=== PATIENT | male | born 1975 | race Caucasian/White ===

== ENCOUNTER 2017-04-27 00:43 | Emergency (ER) | payer OTHER ==
[2017-04-27 01:22] VITALS: TEMP 98.7; BMI 38.3
--- NOTE | 2017-04-27 01:55 | PDOC ---
History of Present Illness - General Chief Complaint: Blood Pressure Problem Stated Complaint: HIGH BP/CHILLS/STOMACH PAIN Time Seen by Provider: 04/27/17 01:35 History Source: Patient - History of Present Illness Initial Comments: 04/27/17 01:51 41 year old male noted to have b/p 168/110 at home. patient reports feeling nervous and dizzy at the time. patient reports feeling fast heart beat. patient reports taking extra dose of his lisinopril prior to arrival. patient is currently asymptomatic. Patient denies headache, nausea, vomiting, abdominal pain, chest pain. Past History - Past Medical History Home Medications: Ambulatory Orders Unobtainable [Unobtainable] 04/27/17 GI Disorders: Yes (gerd) HTN: Yes Hypercholesterolemia: Yes - Psycho/Social/Smoking Cessation Hx Suicidal Ideation: No Smoking History: Never smoked Have you smoked in the past 12 months: No Information on smoking cessation initiated: No Hx Alcohol Use: No Drug/Substance Use Hx: No Review of Systems - Review of Systems Able to Perform ROS?: Yes Is the patient limited [place]er proficient: No Constitutional: Yes: Symptoms Reported *Physical Exam - Vital Signs Last Vital Signs Temp Pulse Resp BP Pulse Ox 98.7 F 115 H 18 133/99 96 04/27/17 01:20 04/27/17 01:20 04/27/17 01:20 04/27/17 01:20 04/27/17 01:20 - Physical Exam General Appearance: Yes: Appropriately Dressed Respiratory/Chest: positive: Lungs Clear, Normal Breath Sounds. negative: Chest Tender Cardiovascular: positive: Regular Rhythm, Regular Rate Gastrointestinal/Abdominal: positive: Normal Bowel Sounds, Soft Extremity: positive: Normal Capillary Refill, Normal Inspection, Normal Range of Motion Integumentary: positive: Normal Color, Dry, Warm Neurologic: positive: Fully Oriented, Alert Heart Score/ECG Review - History History: Slightly suspicious - Electrocardiogram EKG: Normal - Age Age: </= 45 - Risk Factors Risk Factors Heart Score: Yes Hx Obesity - Troponin Troponin: </= normal limit Medical Decision Making - Medical Decision Making A: hypertension P: stable for outpatient management of high blood pressure. patient reports that he will follow up with his pmd *DC/Admit/Observation/Transfer Diagnosis at time of Disposition: Hypertension Qualifiers: Hypertension type: unspecified Qualified Code(s): I10 - Essential (primary) hypertension - Discharge Dispostion Disposition: HOME - Patient Instructions Printed Discharge Instructions: DI for High Blood Pressure Additional Instructions: please follow up with your doctor to adjust your blood pressure medication. eat a heart healthy diet
[2017-04-27 02:36] VITALS: BP 136/91; PULSE 96
--- NOTE | 2017-04-27 12:56 | EKG ---
Test Reason : Blood Pressure : / mmHG Vent. Rate : 103 BPM Atrial Rate : 104 BPM P-R Int : 146 ms QRS Dur : 088 ms QT Int : 330 ms P-R-T Axes : 031 022 -02 degrees QTc Int : 432 ms SINUS TACHYCARDIA NONSPECIFIC T WAVE ABNORMALITY ABNORMAL ECG NO PREVIOUS ECGS AVAILABLE Confirmed by AMBER LEWIS, CONNIE ([id number]) on 04/27/2017 12:55:23 PM Referred By: Confirmed By:CONNIE CLARK MD
== END 2017-04-27 02:40 | disposition home or self-care (01) ==
LOC: JER 00:43
DX: I10 Essential (primary) hypertension (principal); K21.9 Gastro-esophageal reflux disease without esophagitis; E78.00 Pure hypercholesterolemia, unspecified
CPT/HCPCS: 93005; 93010; 99281-25

== ENCOUNTER 2018-02-16 09:44 | Emergency (ER) | payer OTHER ==
[2018-02-16] MEDS ORDERED: SODIUM CHLORIDE 1,000 ML IV STA (10:17)
[2018-02-16] MEDS: KETOROLAC TROMETHAMINE 30 MG/1 ML VIAL IVPUSH ONE ×2 (10:20→11:00)
[2018-02-16] MEDS ORDERED: KETOROLAC TROMETHAMINE 15 MG/ML VIAL ONE (10:44)
[2018-02-16] MEDS ORDERED: ONDANSETRON 4 MG/2 ML VIAL IVPB ONE (11:00)
[2018-02-16 11:03] VITALS: BP 149/108; PULSE 98; TEMP 98.4; BMI 40.1
--- NOTE | 2018-02-16 11:16 | PDOC ---
History of Present Illness - General Stated Complaint: ABD PAIN Time Seen by Provider: 02/16/18 09:57 - History of Present Illness Initial Comments: 02/16/18 11:13 "The patient is a 42 year old male, with a significant past medical history of hypertension, hyperlipidemia, GERD, and kidney stones, who presents to the emergency department with abdominal pain since approximately 04:00 this morning. The patient reports the pain is localized to the left lower quadrant and radiates into the left groin and to his left flank. He reports its sharp and rates it a 10/10. He reports associated nausea and 1 episode of emesis ( nonbloody/nonbilious), but denies any diarrhea or constipation. He denies any dysuria, hematuria, frequency, or urgency. He denies any recent fever, chills, headache, or dizziness. He denies any chest pain, shortness of breath, diaphoresis, or palpitations. He denies any recent travel or sick contacts. Pt states this feels similar to his prior kidney stone but is more severe. Allergies: NKDA Past Surgical History: None reported. Social History: Non smoker. No ETOH or recreational drug use. " Past History - Past Medical History Allergies/Adverse Reactions: Allergies Allergy/AdvReac Type Severity Reaction Status Date / Time No Known Allergies Allergy Verified 02/16/18 10:36 Home Medications: Ambulatory Orders Aspirin [ASA -] 81 mg PO DAILY 02/16/18 Enalapril/Hydrochlorothiazide [Vaseretic 10-25 mg Tablet] 1 each PO DAILY Omeprazole 20 mg PO DAILY 02/16/18 COPD: No GI Disorders: Yes (gerd) HTN: Yes Hypercholesterolemia: Yes - Surgical History Abdominal Surgery: No Appendectomy: No Cardiac Surgery: No Cholecystectomy: No Gastric Stapling: No GI Surgery: No Lung Surgery: No Neurologic Surgery: No - Immunization History TDAP Vaccination: Yes Immunization Up to Date: Yes - Suicide/Smoking/Psychosocial Hx Smoking History: Never smoked Have you smoked in the past 12 months: No Information on smoking cessation initiated: No Hx Alcohol Use: No Drug/Substance Use Hx: No Substance Use Type: None Review of Systems - Review of Systems Comments:: 02/16/18 11:14 "GENERAL/CONSTITUTIONAL: No fever or chills. No weakness. HEAD, EYES, EARS, NOSE AND THROAT: No change in vision. No ear pain or discharge. No sore throat. CARDIOVASCULAR: No chest pain or shortness of breath. RESPIRATORY: No cough, wheezing, or hemoptysis. GASTROINTESTINAL: +LLQ/ left groin pain, nausea, vomiting, No diarrhea, constipation, melena, or hematochezia.. GENITOURINARY: No dysuria, frequency, or change in urination. MUSCULOSKELETAL: No joint or muscle swelling or pain. No neck or back pain. SKIN: No rash NEUROLOGIC: No headache, vertigo, loss of consciousness, or change in strength/ sensation. ENDOCRINE: No increased thirst. No abnormal weight change. HEMATOLOGIC/LYMPHATIC: No anemia, easy bleeding, or history of blood clots. ALLERGIC/IMMUNOLOGIC: No hives or skin allergy. " *Physical Exam - Vital Signs Last Vital Signs Temp Pulse Resp BP Pulse Ox 98.4 F 98 H 22 149/108 98 02/16/18 09:50 02/16/18 09:50 02/16/18 09:50 02/16/18 09:50 02/16/18 09:50 - Physical Exam Comments: 02/16/18 11:14 "GENERAL: Awake, alert, and fully oriented, in no acute distress. HEAD: No signs of trauma EYES: PERRLA, EOMI, sclera anicteric, conjunctiva clear ENT: Auricles normal inspection, hearing grossly normal, nares patent, oropharynx clear without exudates. Moist mucosa NECK: Nontender, no stepoffs, Normal ROM, supple, no lymphadenopathy, JVD, or masses LUNGS: Breath sounds equal, clear to auscultation bilaterally. No wheezes, and no crackles HEART: Regular rate and rhythm, normal S1 and S2, no murmurs, rubs or gallops ABDOMEN: + LLQ tenderness, + L CVAT, normoactive bowel sounds. No guarding, no rebound. No masses : No scrotal masses or tenderness, normal testicular lay, normal cremaster bilaterally EXTREMITIES: Normal range of motion, no edema. No clubbing or cyanosis. No cords, erythema, or tenderness NEUROLOGICAL: Cranial nerves II through XII intact. 5/5 strength and sensation in all extremities, Normal speech, normal gait, normal cerebellar function SKIN: Warm, Dry, normal turgor, no rashes or lesions noted. " ED Treatment Course - LABORATORY CBC & Chemistry Diagram: 02/16/18 10:58 02/16/18 10:58 - Medications Given in the ED: ED Medications Discontinued Medications Generic Name Dose Route Start Last Admin Trade Name Carolyn PRN Reason Stop Dose Admin Ketorolac Tromethamine 15 mg 02/16/18 11:00 02/16/18 10:20 Toradol Injection - IVPUSH 02/16/18 11:01 15 mg ONCE ONE Administration Medical Decision Making - Medical Decision Making 02/16/18 11:15 42 M with LLQ pain radiating to L flank and L groin. Consistent with possible renal colic as pt has h/o kidney stones. Also consider colitis/diverticulitis. Pt with no evidence of inguinal hernia, no evidence of testicular torsion on exam. - Labs, UA, UCx - CT if indicated - IVF, pain control 02/16/18 13:28 Labs wnl UA with +blood, likely product support representative of stone No evidence of urinary tract infection Bedside sono shows normal aorta, no AAA Pt reassessed - states pain has migrated towards groin and almost completely resolved s/p toradol. Pt is well appearing, with normal vitals. Clinically stable for DC at this time. I discussed the physical exam findings, ancillary test results and final diagnoses with the patient. I answered all of the patient's questions. The patient was satisfied with the care received and felt comfortable with the discharge plan and treatment plan. The patient agrees to follow up with the primary care physician within 24-72 hours. *DC/Admit/Observation/Transfer Diagnosis at time of Disposition: Kidney stone - Discharge Dispostion Disposition: HOME - Referrals Referrals: Tacos Perez MS [Primary Care Provider] - Sami Burnett MD [Staff Physician] - - Patient Instructions Printed Discharge Instructions: DI for Kidney Stones Additional Instructions: You likely have a kidney stone. Drink plenty of fluids to stay hydrated. Take naproxen twice daily as needed for pain. If you have severe pain, take one percocet. If you have very severe pain, fevers, vomiting, or any other concerning symptoms , return to the ER immediately. Otherwise, follow up with a urologist within 1 week. Call the number provided to make an appointment. Print Language: OCCITAN - Post Discharge Activity - Attestations Physician Attestion: 02/16/18 13:32 IDr. Sang MD, attest that this document has been prepared under my direction and personally reviewed by me in its entirety. I further attest, that it accurately reflects all work, treatment, procedures and medical decision -making performed by me.
[2018-02-16 11:20] LABS: URINE APPEARANCE SLCLOUDY; URINE BILIRUBIN NEGATIVE (<2.0 mg/dL); URINE COLOR LTYELLOW; URINE GLUCOSE (UA) NEGATIVE (NEGATIVE); URINE KETONE NEGATIVE (NEGATIVE); URINE LEUK ESTERASE NEGATIVE (NEGATIVE); URINE NITRITE NEGATIVE (NEGATIVE); URINE PROTEIN NEGATIVE (NEGATIVE); URINE UROBILINOGEN NEGATIVE mg/dL (0.2-1.0)
[2018-02-16 11:21] LABS: BASO % 0.5 % (0-2.0); EOS % 0.5 % (0-4.5); HEMATOCRIT 43.7 % (35.4-49); HEMOGLOBIN 15.1 GM/dL (11.7-16.9); LYMPH % 25.8 % (8-40); MCH 28.6 pg (25.7-33.7); MCHC 34.6 g/dl (32.0-35.9); MEAN CELL VOLUME 82.6 fl (80-96); MEAN PLT VOLUME 8.6 fl (7.5-11.1); MONO % 5.2 % (3.8-10.2); PLATELET COUNT 303 K/MM3 (134-434); RBC 5.29 M/mm3 (4.00-5.60); RDW 13.6 % (11.9-15.9); WHITE BLOOD COUNT 9.8 K/mm3 (4.0-10.0)
[2018-02-16 11:38] LABS: EPI CELLS RARE /HPF (FEW); URINE MUCUS RARE
[2018-02-16 11:50] LABS: ALBUMIN 3.6 g/dl (3.4-5.0); ANION GAP 9 (8-16); BLOOD UREA NITROGEN 14 mg/dL (7-18); CALCIUM 9.3 mg/dL (8.5-10.1); CHLORIDE 103 mmol/L (98-107); CO2 28 mmol/L (21-32); CREATININE 0.9 mg/dL (0.7-1.3); GLUCOSE,RANDOM 111 mg/dL (74-106); POTASSIUM 4.1 mmol/L (3.5-5.1); SGOT/AST 12 U/L (15-37); SGPT/ALT 18 U/L (12-78); SODIUM 140 mmol/L (136-145); TOT PROT 7.5 g/dl (6.4-8.2)
[2018-02-16 11:51] LABS: LIPASE 266 U/L (73-393)
[2018-02-16 12:00] LABS: ALK PHOS 50 U/L (45-117); BILIRUBIN,TOTAL 0.4 mg/dL (0.2-1.0)
== END 2018-02-16 14:51 | disposition home or self-care (01) ==
LOC: JER 09:44 → SUPCPDRO 09:44 → JER 14:51
PROC: 3E0337Z Introduction of Electrolytic and Water Balance Substance into Peripheral Vein, Percutaneous Approach (ICD-10-PCS; principal; 2018-02-16)
PROC: 3E033GC Introduction of Other Therapeutic Substance into Peripheral Vein, Percutaneous Approach (ICD-10-PCS; 2018-02-16)
PROC: 3E0333Z Introduction of Anti-inflammatory into Peripheral Vein, Percutaneous Approach (ICD-10-PCS; 2018-02-16)
DX: N20.0 Calculus of kidney (principal); Z87.442 Personal history of urinary calculi; I10 Essential (primary) hypertension; E78.5 Hyperlipidemia, unspecified; K21.9 Gastro-esophageal reflux disease without esophagitis; Z79.82 Long term (current) use of aspirin
CPT/HCPCS: 36415; 80053; 81003; 81015; 83690; 85025; 87086; 99283-25; J7030

== ENCOUNTER 2021-04-19 03:28 | Emergency (ER) | payer OTHER ==
[2021-04-19 03:48] VITALS: BMI 36.0
[2021-04-19] MEDS ORDERED: morphine CARPU-JECT 2 MG/1 ML DISP.SYRIN IVPUSH ONE (03:59)
[2021-04-19] MEDS ORDERED: SODIUM CHLORIDE 0.9% 500 ML INFUS.BAG IV ONE (03:59)
[2021-04-19] MEDS ORDERED: ONDANSETRON 4 MG/2 ML VIAL IVPUSH ONE (04:01)
[2021-04-19] MEDS ORDERED: ONDANSETRON 4 MG/2 ML VIAL ONE (04:04)
[2021-04-19] MEDS ORDERED: MORPHINE SULFATE 2 MG/ML VIAL ONE (04:04)
[2021-04-19 04:24] LABS: BASO % 0.9 % (0-2.0); EOS % 1.1 % (0-4.5); HEMATOCRIT 45.7 % (35.4-49); HEMOGLOBIN 15.5 GM/dL (11.7-16.9); LYMPH % 39.7 % (8-40); MCH 28.2 pg (25.7-33.7); MCHC 33.9 g/dl (32.0-35.9); MEAN CELL VOLUME 83.3 fl (80-96); MEAN PLT VOLUME 9.2 fl (7.5-11.1); NEUT % 52.3 % (42.8-82.8); PLATELET COUNT 307 10^3/uL (134-434); RBC 5.49 M/mm3 (4.00-5.60); RDW 14.1 % (11.9-15.9); WHITE BLOOD COUNT 11.9 K/mm3 (4.0-10.0)
[2021-04-19] MEDS ORDERED: METOCLOPRAMIDE HCL INJECTION 10 MG/2 ML VIAL ONE (04:26)
[2021-04-19] MEDS ORDERED: METOCLOPRAMIDE HCL INJECTION 10 MG/2 ML VIAL IVPB ONE (04:28)
[2021-04-19 04:45] LABS: CALCIUM 8.9 mg/dL (8.5-10.1)
[2021-04-19 04:46] LABS: ALBUMIN 3.4 g/dl (3.4-5.0); BLOOD UREA NITROGEN 16.6 mg/dL (7-18); MAGNESIUM 1.7 mg/dL (1.8-2.4)
[2021-04-19 04:49] LABS: CREATININE 1.1 mg/dL (0.55-1.3)
[2021-04-19 04:50] LABS: BILIRUBIN,TOTAL 0.4 mg/dL (0.2-1); TOT PROT 7.3 g/dl (6.4-8.2)
[2021-04-19] MEDS ORDERED: KETOROLAC TROMETHAMINE 15 MG/ML VIAL IVPUSH ONE (04:53)
[2021-04-19] MEDS ORDERED: KETOROLAC TROMETHAMINE 15 MG/ML VIAL ONE (04:53)
[2021-04-19 05:14] LABS: EPI CELLS 15 /uL (0-25.1); HYALINE CASTS 6 /uL (0-3.1); URINE APPEARANCE TURBID; URINE BACTERIA 1 /uL (0-1359); URINE BILIRUBIN 1+ (NEGATIVE); URINE COLOR DK YELLOW; URINE GLUCOSE (UA) NEGATIVE (NEGATIVE); URINE KETONE TRACE (NEGATIVE); URINE LEUK ESTERASE 1+ (NEGATIVE); URINE NITRITE NEGATIVE (NEGATIVE); URINE PROTEIN 2+ (NEGATIVE); URINE WBC 78 /uL (0-25.8)
[2021-04-19] MEDS ORDERED: KETOROLAC TROMETHAMINE 30 MG/1 ML VIAL IVPUSH ONE (05:28)
[2021-04-19 06:16] VITALS: BP 136/74; PULSE 78; TEMP 98.4
[2021-04-19 09:36] LABS: URINE RBC 154.8 /uL (0-23.9)
[2021-04-19 09:37] LABS: URINE CRYSTALS NON SEEN /hpf
== END 2021-04-19 06:16 | disposition home or self-care (01) ==
LOC: JER 03:28
PROC: 3E033NZ Introduction of Analgesics, Hypnotics, Sedatives into Peripheral Vein, Percutaneous Approach (ICD-10-PCS; principal; 2021-04-19)
PROC: 3E033GC Introduction of Other Therapeutic Substance into Peripheral Vein, Percutaneous Approach (ICD-10-PCS; 2021-04-19)
PROC: 3E033GC Introduction of Other Therapeutic Substance into Peripheral Vein, Percutaneous Approach (ICD-10-PCS; 2021-04-19)
PROC: 3E0333Z Introduction of Anti-inflammatory into Peripheral Vein, Percutaneous Approach (ICD-10-PCS; 2021-04-19)
PROC: 3E0333Z Introduction of Anti-inflammatory into Peripheral Vein, Percutaneous Approach (ICD-10-PCS; 2021-04-19)
DX: N20.0 Calculus of kidney (principal)
CPT/HCPCS: 36415; 74176-TC; 80053; 81003; 83690; 83735; 85025; 87086; 93005; 93010; 99284-25

== ENCOUNTER 2021-06-17 07:59 | Observation (INO) | payer OTHER ==
[2021-06-17] MEDS ORDERED: ASPIRIN 81 MG CHEWABLE TABLETS PO ONE (08:44)
[2021-06-17] MEDS ORDERED: NITROGLYCERIN 2% OINTMENT - 1GM PACKET TD ONE ×2 (08:44→09:15)
[2021-06-17] MEDS ORDERED: FAMOTIDINE 20 MG/50 ML IVPB 20 MG/50 ML MG IVPB ONE ×2 (08:44→09:16)
[2021-06-17] MEDS ORDERED: ASPIRIN 81 MG CHEWABLE TABLETS ONE (09:16)
[2021-06-17 10:54] LABS: HEMATOCRIT 45.4 % (35.4-49); HEMOGLOBIN 15.4 GM/dL (11.7-16.9); MCH 28.4 pg (25.7-33.7); MEAN CELL VOLUME 83.5 fl (80-96); MEAN PLT VOLUME 9.1 fl (7.5-11.1); PLATELET COUNT 314 10^3/uL (134-434); RBC 5.43 M/mm3 (4.00-5.60); RDW 13.8 % (11.9-15.9); WHITE BLOOD COUNT 11.1 K/mm3 (4.0-10.0)
[2021-06-17 11:22] LABS: CHLORIDE 107 mmol/L (98-107); SODIUM 139 mmol/L (136-145)
[2021-06-17 11:25] LABS: ALBUMIN 3.4 g/dl (3.4-5.0); ANION GAP 6 MMOL/L (8-16); BLOOD UREA NITROGEN 14.7 mg/dL (7-18); CALCIUM 9.3 mg/dL (8.5-10.1); CO2 26 mmol/L (21-32); GLUCOSE,RANDOM 113 mg/dL (74-106); LIPASE 245 U/L (73-393)
[2021-06-17 11:29] LABS: CREATININE 0.9 mg/dL (0.55-1.3); SGOT/AST 10 U/L (15-37); SGPT/ALT 23 U/L (13-61); TOT PROT 7.3 g/dl (6.4-8.2)
[2021-06-17 11:31] LABS: ALK PHOS 41 U/L (45-117)
[2021-06-17 14:16] LABS: ANISOCYTOSIS 0; MACROCYTOSIS 0; PLATELET ESTIMATE NORMAL
[2021-06-17] MEDS ORDERED: MAG HYDROX/AL HYDROX/SIMETH -MYLANTA- ORAL SUSPENSION PO ONE (15:38)
[2021-06-17] MEDS ORDERED: ACETAMINOPHEN 325 MG TABLET (FP) PO ONE (15:39)
[2021-06-17] MEDS ORDERED: MAG HYDROX/AL HYDROX/SIMETH 30 ML UNIT-DOSE CUP ONE (16:01)
[2021-06-17] MEDS ORDERED: ACETAMINOPHEN 325 MG TABLET (FP) ONE ×2 (16:01→19:48)
[2021-06-17] MEDS ORDERED: ACETAMINOPHEN 325 MG TABLET (FP) PO PRN (18:51)
[2021-06-17] MEDS ORDERED: ACETAMINOPHEN 500 MG TABLET (FP) PO ONE (18:51)
[2021-06-17 23:16] LABS: PH,URINE 5.5 (5.0-8.0); URINE APPEARANCE CLEAR; URINE BILIRUBIN NEGATIVE (NEGATIVE); URINE COLOR YELLOW; URINE GLUCOSE (UA) NEGATIVE (NEGATIVE); URINE KETONE NEGATIVE (NEGATIVE); URINE LEUK ESTERASE NEGATIVE (NEGATIVE); URINE NITRITE NEGATIVE (NEGATIVE); URINE PROTEIN NEGATIVE (NEGATIVE); URINE UROBILINOGEN 0.2 mg/dL (0.2-1.0)
[2021-06-18] MEDS ORDERED: MAG HYDROX/AL HYDROX/SIMETH 30 ML UNIT-DOSE CUP PO ONE (00:35)
[2021-06-18 00:36] VITALS: BMI 39.9
[2021-06-18] MEDS: MELATONIN 5 MG TABLETS PO PRN (00:44)
[2021-06-18 08:07] LABS: HEMATOCRIT 41.3 % (35.4-49); HEMOGLOBIN 14.3 GM/dL (11.7-16.9); MCHC 34.6 g/dl (32.0-35.9); MEAN CELL VOLUME 83.8 fl (80-96); MEAN PLT VOLUME 8.8 fl (7.5-11.1); PLATELET COUNT 264 10^3/uL (134-434); RBC 4.93 M/mm3 (4.00-5.60); RDW 13.9 % (11.9-15.9); WHITE BLOOD COUNT 12.3 K/mm3 (4.0-10.0)
[2021-06-18 08:37] LABS: BLOOD UREA NITROGEN 15.4 mg/dL (7-18)
[2021-06-18 08:39] LABS: PHOSPHOROUS 3.1 mg/dL (2.5-4.9)
[2021-06-18 08:42] LABS: CREATININE 0.9 mg/dL (0.55-1.3)
[2021-06-18 08:43] LABS: MAGNESIUM 1.8 mg/dL (1.8-2.4)
[2021-06-18] MEDS ORDERED: PATIENT'S OWN MEDICATION (NON-FORMULARY) (Lisinopril/Hydrochlorothiazide [Lisinopril-Hctz PO SCH (10:00)
[2021-06-18] MEDS: HYDROCHLOROTHIAZIDE 12.5 MG CAPSULE (FP) PO SCH (10:41)
[2021-06-18] MEDS: FENOFIBRIC ACID 135 MG CAP PO SCH (10:41)
[2021-06-18] MEDS: ASPIRIN 81 MG CHEWABLE TABLETS PO SCH (10:41)
[2021-06-18] MEDS: PANTOPRAZOLE 40 MG TABLET PO SCH (10:41)
[2021-06-18] MEDS: OMEGA-3 ACID ETHYL ESTERS (FATTY-ACIDS) 1 GM CAPSULE (FP) PO SCH (10:41)
[2021-06-18] MEDS: LISINOPRIL 10 MG TABLET PO SCH (10:42)
[2021-06-18] MEDS ORDERED: PT OWN MED DRAWER 7, Y5N ONE (16:07)
[2021-06-19] MEDS: MELATONIN 5 MG TABLETS PO PRN (00:20)
[2021-06-19 05:38] VITALS: TEMP 98.2
[2021-06-19 08:22] LABS: HEMATOCRIT 44.1 % (35.4-49); HEMOGLOBIN 15.6 GM/dL (11.7-16.9); MCH 29.3 pg (25.7-33.7); MCHC 35.4 g/dl (32.0-35.9); MEAN CELL VOLUME 82.7 fl (80-96); MEAN PLT VOLUME 9.2 fl (7.5-11.1); PLATELET COUNT 294 10^3/uL (134-434); RBC 5.33 M/mm3 (4.00-5.60); RDW 13.8 % (11.9-15.9); WHITE BLOOD COUNT 11.4 K/mm3 (4.0-10.0)
[2021-06-19 08:43] LABS: ALBUMIN 3.2 g/dl (3.4-5.0); BLOOD UREA NITROGEN 12.1 mg/dL (7-18); CALCIUM 9.1 mg/dL (8.5-10.1)
[2021-06-19 08:47] LABS: CREATININE 0.7 mg/dL (0.55-1.3)
[2021-06-19 08:49] LABS: TOT PROT 7.2 g/dl (6.4-8.2)
[2021-06-19] MEDS ORDERED: PT OWN MED DRAWER 7, Y5N ONE (09:38)
[2021-06-19] MEDS: ASPIRIN 81 MG CHEWABLE TABLETS PO SCH ×2 (10:15→12:20)
[2021-06-19] MEDS: OMEGA-3 ACID ETHYL ESTERS (FATTY-ACIDS) 1 GM CAPSULE (FP) PO SCH ×2 (10:17→12:20)
[2021-06-19] MEDS: LISINOPRIL 10 MG TABLET PO SCH ×2 (10:17→12:21)
[2021-06-19] MEDS: HYDROCHLOROTHIAZIDE 12.5 MG CAPSULE (FP) PO SCH ×2 (10:17→12:20)
[2021-06-19] MEDS: PANTOPRAZOLE 40 MG TABLET PO SCH ×2 (10:18→12:20)
[2021-06-19] MEDS: FENOFIBRIC ACID 135 MG CAP PO SCH ×2 (10:18→12:20)
[2021-06-19 12:45] VITALS: BP 125/57; PULSE 81
== END 2021-06-19 17:37 | disposition home or self-care (01) ==
LOC: JER 07:59 → JERBED 13:26 → J4W 23:47
PROVIDERS: ADMIT Internal Medicine; ATTEND Internal Medicine
PROC: 3E033GC Introduction of Other Therapeutic Substance into Peripheral Vein, Percutaneous Approach (ICD-10-PCS; principal; 2021-06-17)
DX: R07.9 Chest pain, unspecified (principal); R10.13 Epigastric pain; I10 Essential (primary) hypertension; R73.03 Prediabetes; K21.9 Gastro-esophageal reflux disease without esophagitis; K29.70 Gastritis, unspecified, without bleeding; E66.01 Morbid (severe) obesity due to excess calories; Z68.41 Body mass index [BMI] 40.0-44.9, adult; D72.829 Elevated white blood cell count, unspecified
CPT/HCPCS: 36415; 71045-TC-FY; 76705-TC; 80048; 80053; 81003; 82550; 83690; 83735; 84100; 84484; 85025; 85027; 93005; 93010; 96365; 99285-25; C9803; G0378; U0003; U0005

== ENCOUNTER 2022-10-13 07:21 | Emergency (ER) | payer OTHER ==
[2022-10-13 07:35] VITALS: TEMP 99.2; BMI 38.9
[2022-10-13] MEDS ORDERED: SODIUM CHLORIDE 1,000 ML IV STA (09:09)
[2022-10-13 11:25] LABS: BASO % 0.5 % (0-2.0); EOS % 0.7 % (0-4.5); HEMATOCRIT 49.9 % (35.4-49); HEMOGLOBIN 16.4 GM/dL (11.7-16.9); LYMPH % 28.9 % (8-40); MCH 27.2 pg (25.7-33.7); MCHC 32.8 g/dl (32.0-35.9); MEAN CELL VOLUME 82.8 fl (80-96); MEAN PLT VOLUME 9.5 fl (7.5-11.1); NEUT % 64.9 % (42.8-82.8); PLATELET COUNT 279 10^3/uL (134-434); RBC 6.02 M/mm3 (4.00-5.60); RDW 14.7 % (11.9-15.9)
[2022-10-13 11:28] LABS: EPI CELLS 1 /uL (0-25.1); HYALINE CASTS 0 /uL (0-3.1); PH,URINE 6.5 (5.0-8.0); URINE APPEARANCE CLEAR; URINE BACTERIA 12 /uL (0-1359); URINE BILIRUBIN NEGATIVE (NEGATIVE); URINE COLOR YELLOW; URINE GLUCOSE (UA) NEGATIVE (NEGATIVE); URINE KETONE NEGATIVE (NEGATIVE); URINE LEUK ESTERASE NEGATIVE (NEGATIVE); URINE NITRITE NEGATIVE (NEGATIVE); URINE PROTEIN NEGATIVE (NEGATIVE); URINE RBC 53 /uL (0-23.9); URINE UROBILINOGEN 0.2 mg/dL (0.2-1.0); URINE WBC 4 /uL (0-25.8)
[2022-10-13 11:48] LABS: CALCIUM 9.5 mg/dL (8.5-10.1)
[2022-10-13 11:49] LABS: ALBUMIN 3.2 g/dl (3.4-5.0); BLOOD UREA NITROGEN 14.8 mg/dL (7-18); MAGNESIUM 1.7 mg/dL (1.8-2.4)
[2022-10-13 11:52] LABS: CREATININE 0.8 mg/dL (0.55-1.3)
[2022-10-13 11:53] LABS: BILIRUBIN,TOTAL 0.8 mg/dL (0.2-1)
[2022-10-13] MEDS ORDERED: MAGNESIUM SULF 50% (8.12 MEQ/2 ML-1 GM VIAL) IVPB ONE (12:41)
[2022-10-13 14:52] VITALS: BP 130/89; PULSE 78; RESP 18
== END 2022-10-13 15:11 | disposition home or self-care (01) ==
LOC: JER 07:21
PROC: 3E033GC Introduction of Other Therapeutic Substance into Peripheral Vein, Percutaneous Approach (ICD-10-PCS; principal; 2022-10-13)
DX: R53.1 Weakness (principal); R00.2 Palpitations; E83.42 Hypomagnesemia
CPT/HCPCS: 36415; 80053; 81003; 82550; 83690; 83735; 84484; 85025; 93005; 93010; 99284-25

== ENCOUNTER 2022-12-16 10:21 | Emergency (ER) | payer OTHER ==
[2022-12-16 11:07] VITALS: RESP 18; BMI 40.8
[2022-12-16] MEDS ORDERED: MECLIZINE HCL 25 MG TABLET (FP) PO ONE (11:35)
[2022-12-16] MEDS ORDERED: FAMOTIDINE 20 MG/50 ML IVPB 20 MG/50 ML MG IVPB ONE ×2 (11:35→11:55)
[2022-12-16] MEDS ORDERED: METOCLOPRAMIDE HCL INJECTION 10 MG/2 ML VIAL IVPUSH ONE (11:35)
[2022-12-16] MEDS ORDERED: SODIUM CHLORIDE 0.9% 500 ML INFUS.BAG IV ONE (11:35)
[2022-12-16] MEDS ORDERED: ACETAMINOPHEN 1000 MG/100 ML BAG IVPB ONE (11:36)
[2022-12-16] MEDS ORDERED: METOCLOPRAMIDE HCL INJECTION 10 MG/2 ML VIAL ONE (11:54)
[2022-12-16] MEDS ORDERED: MECLIZINE HCL 25 MG TABLET (FP) ONE (11:54)
[2022-12-16 12:50] LABS: BASO % 0.3 % (0-2.0); EOS % 0.5 % (0-4.5); HEMATOCRIT 49.9 % (35.4-49); HEMOGLOBIN 16.5 GM/dL (11.7-16.9); LYMPH % 28.6 % (8-40); MCH 27.3 pg (25.7-33.7); MCHC 33.1 g/dl (32.0-35.9); MEAN CELL VOLUME 82.4 fl (80-96); MEAN PLT VOLUME 9.5 fl (7.5-11.1); MONO % 4.9 % (3.8-10.2); NEUT % 65.7 % (42.8-82.8); PLATELET COUNT 281 10^3/uL (134-434); RBC 6.05 M/mm3 (4.00-5.60); RDW 14.7 % (11.9-15.9); WHITE BLOOD COUNT 12.3 K/mm3 (4.0-10.0)
[2022-12-16 12:53] LABS: EPI CELLS 3 /uL (0-25.1); HYALINE CASTS 0 /uL (0-3.1); URINE APPEARANCE CLEAR; URINE BACTERIA 112 /uL (0-1359); URINE BILIRUBIN NEGATIVE (NEGATIVE); URINE COLOR YELLOW; URINE GLUCOSE (UA) NEGATIVE (NEGATIVE); URINE KETONE NEGATIVE (NEGATIVE); URINE LEUK ESTERASE NEGATIVE (NEGATIVE); URINE NITRITE NEGATIVE (NEGATIVE); URINE PROTEIN 1+ (NEGATIVE); URINE RBC 60 /uL (0-23.9); URINE WBC 11 /uL (0-25.8)
[2022-12-16 13:17] LABS: CALCIUM 9.7 mg/dL (8.5-10.1)
[2022-12-16 13:18] LABS: ALBUMIN 3.3 g/dl (3.4-5.0); BLOOD UREA NITROGEN 12.7 mg/dL (7-18)
[2022-12-16 13:20] LABS: CREATININE 0.7 mg/dL (0.55-1.3)
[2022-12-16 13:22] LABS: BILIRUBIN,TOTAL 0.7 mg/dL (0.2-1); TOT PROT 7.2 g/dl (6.4-8.2)
[2022-12-16] MEDS ORDERED: LORazepam 2 MG/ML SDV VIAL IVPUSH ONE (16:13)
[2022-12-16 17:01] VITALS: BP 141/80; PULSE 89; TEMP 97.9
== END 2022-12-16 18:30 | disposition home or self-care (01) ==
LOC: JER 10:21
PROC: 3E033GC Introduction of Other Therapeutic Substance into Peripheral Vein, Percutaneous Approach (ICD-10-PCS; principal; 2022-12-16)
DX: G43.909 Migraine, unspecified, not intractable, without status migrainosus (principal); H60.92 Unspecified otitis externa, left ear
CPT/HCPCS: 0241U-QW; 36415; 80053; 81003; 82962; 85025; 87086; 93005; 93010; 99284-25

== ENCOUNTER 2024-06-18 09:20 | Emergency (ER) | payer OTHER ==
[2024-06-18 10:10] VITALS: RESP 20; TEMP 98.7; BMI 44.6
[2024-06-18 10:15] VITALS: BP 118/63; PULSE 91
== END 2024-06-18 11:18 | disposition home or self-care (01) ==
LOC: JER 09:20
DX: K13.0 Diseases of lips (principal); R20.0 Anesthesia of skin
CPT/HCPCS: 99283-25

== ENCOUNTER 2025-05-06 14:00 | Emergency (ER) | payer OTHER ==
[2025-05-06 14:24] VITALS: BMI 44.8
[2025-05-06] MEDS: SODIUM CHLORIDE 500 ML IV STA (15:48)
[2025-05-06] MEDS: ACETAMINOPHEN 1000 MG/100 ML BAG IVPB ONE (15:49)
[2025-05-06 16:07] LABS: ABSOLUTE IMMATURE GRANULOCYTES 0.04 x10^3/uL (0.0-0.031); BASOPHILS # 0.07 x10^3/uL (0.01-0.08); EOSINOPHIL % 0.5 % (0.8-7.0); EOSINOPHILS # 0.05 x10^3/uL (0.04-0.54); MCHC 32.4 g/dl (32.3-36.5); MEAN CELL VOLUME 83.2 fl (79.0-92.2); MEAN PLT VOLUME 10.7 fl (9.4-12.4); MONOCYTE # 0.79 x10^3/uL (0.30-0.82); MONOCYTE % 7.9 % (5.3-12.2); RDW 13.3 % (12.2-16.1)
[2025-05-06 16:23] LABS: EPI CELLS 6 /uL (0-25.1); HYALINE CASTS 2 /uL (0-3.1); URINE APPEARANCE CLEAR; URINE BACTERIA 4 /uL (0-1359); URINE BILIRUBIN 1+ (NEGATIVE); URINE COLOR DK YELLOW; URINE GLUCOSE (UA) NEGATIVE (NEGATIVE); URINE KETONE TRACE (NEGATIVE); URINE LEUK ESTERASE NEGATIVE (NEGATIVE); URINE NITRITE NEGATIVE (NEGATIVE); URINE PROTEIN 1+ (NEGATIVE); URINE RBC 25 /uL (0-23.9); URINE UROBILINOGEN 1.0 mg/dL (0.2-1.0); URINE WBC 12 /uL (0-25.8)
[2025-05-06 16:33] LABS: CO2 28.0 mmol/L (21-32); GLUCOSE,RANDOM 116.0 mg/dL (74-106)
[2025-05-06 16:36] LABS: CREATININE 0.8 mg/dL (0.55-1.3); SGOT/AST 16.0 U/L (15-37); SGPT/ALT 33.0 U/L (13-61)
[2025-05-06 16:38] LABS: TOT PROT 6.9 g/dl (6.4-8.2)
[2025-05-06 16:39] LABS: ALK PHOS 50.0 U/L (45-117)
[2025-05-06 17:22] LABS: HCV DIAGNOSTIC IN-HOUSE W/RFLX NON-REACTIVE (NONREACTIVE)
[2025-05-06 19:30] VITALS: BP 127/86; PULSE 83; RESP 17; TEMP 98.6
[2025-05-06 22:23] LABS: HIV INTERPRETATION PRESUMPTIVE POSITIVE (NEGATIVE)
== END 2025-05-06 19:37 | disposition home or self-care (01) ==
LOC: JER 14:00
PROC: 3E0337Z Introduction of Electrolytic and Water Balance Substance into Peripheral Vein, Percutaneous Approach (ICD-10-PCS; principal; 2025-05-06)
DX: R68.83 Chills (without fever) (principal); R11.0 Nausea; R19.7 Diarrhea, unspecified; M79.10 Myalgia, unspecified site
CPT/HCPCS: 36415; 80053; 81003; 82962; 84484; 85025; 86803; 87086; 87207; 87389; 87637-QW; 93005; 93010; 99284-25